=== PATIENT | male | born 1965 | race Two or more races ===

== ENCOUNTER 2020-07-28 14:17 | Emergency (ER) | payer OTHER ==
[~2020-07-28] VITALS: Ht 172.7 cm; Wt 90.7 kg
[2020-07-28 15:09] VITALS: BP 157/88
[2020-07-28] MEDS ORDERED: TETRACAINE HCL 0.5% OPTH(EYE) SOLN 4ML RIGHTEYE ONE (15:15)
[2020-07-28] MEDS ORDERED: FLUORESCEIN SOD 1 MG TEST STRIP OP ONE (15:15)
== END 2020-07-28 17:49 | disposition home or self-care (01) ==
LOC: ER 14:17
DX: S05.01XA Injury of conjunctiva and corneal abrasion without foreign body, right eye, initial encounter (principal); W22.8XXA Striking against or struck by other objects, initial encounter; Y93.89 Activity, other specified; Y92.89 Other specified places as the place of occurrence of the external cause; Y99.8 Other external cause status